=== PATIENT | female | born 2005 | race Caucasian/White ===

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

== ENCOUNTER 2024-06-15 14:28 | Emergency (ER) | payer MEDICAID ==
[~2024-06-15] VITALS: Ht 154.9 cm; Wt 72.7 kg
[2024-06-15 16:15] LABS: BILIRUBIN,URINE NEGATIVE (Neg); CLARITY,URINE CLOUDY (Clear); COLOR,URINE YELLOW (Yellow); GLUCOSE, URINE NEGATIVE (Neg); KETONES,URINE 15 mg/dl (Neg); LEUKOCYTE ESTERASE ,URINE SMALL (Neg); NITRITES, URINE NEGATIVE (Neg); OCCULT BLOOD,URINE TRACE-INTACT (Neg); PROTEIN,URINE 30 mg/dl (Neg)
[2024-06-15 16:16] LABS: URINE HCG NEGATIVE (NEG)
[2024-06-15 16:24] LABS: UA COLLECTION TYPE CLN CATCH MIDSTREAM
[2024-06-15 16:26] LABS: BACTERIA,URINE 1+ /HPF (Neg); SQUAMOUS EPITHELIAL CELL,UR MANY /LPF (FEW); WBC,URINE TNTC /HPF (0-4)
[2024-06-15 16:54] LABS: BASOPHILS % (AUTO) 0.3 % (0-1); EOSINOPHILS % (AUTO) 0.1 % (0-6); HEMOGLOBIN 12.8 g/dl (12.0-16.0); LYMPHOCYTES % (AUTO) 8.5 % (21-51); MEAN CORPUSCULAR HEMOGLOBIN 26.1 PG (27.0-31.0); MEAN CORPUSCULAR HGB CONC 32.7 g/dL (33.0-36.5); MEAN CORPUSCULAR VOLUME 79.7 FL (78-98); MEAN PLATELET VOLUME 9.1 FL (7.4-10.4); MONOCYTES # (AUTO) 0.7 X10'3 (0-0.9); MONOCYTES % (AUTO) 5.9 % (2-12); NEUTROPHILS # (AUTO) 10.5 X10'3 (1.8-7.7); NEUTROPHILS % (AUTO) 85.2 % (42-75); PLATELET COUNT 269 X10'3 (140-440); RED CELL DISTRIBUTION WIDTH 14.3 % (11.5-14.5); WHITE BLOOD COUNT 12.3 X10'3 (4.5-11.0)
[2024-06-15 17:22] LABS: ALANINE AMINOTRANSFERASE 12 U/L (12-78); ALBUMIN 3.9 G/DL (3.4-5.0); ALBUMIN/GLOBULIN RATIO 0.8 (1.1-1.5); ALKALINE PHOSPHATASE 90 IU/L (20-180); ANION GAP 10 (8-16); ASPARTATE AMINO TRANSFERASE 10 U/L (10-37); BILIRUBIN,TOTAL 0.4 MG/DL (0.1-1.0); BLOOD UREA NITROGEN 7 MG/DL (7-18); BUN/CREATININE RATIO 9.1 (10.0-20.0); CALCIUM 9.3 MG/DL (8.5-10.1); CHLORIDE 102 MMOL/L (99-107); CREATININE 0.77 MG/DL (0.40-0.90); GLUCOSE 94 MG/DL (70-104); POTASSIUM 3.5 MMOL/L (3.5-5.1); SODIUM 138 MMOL/L (135-145); TOTAL PROTEIN 8.5 G/DL (6.4-8.2); eCRCL 88 ML/MIN; eGFR > 90 ML/MIN
[2024-06-15 18:08] VITALS: BP 109/68; PULSE 70; TEMP 97.5; O2SAT 97
[2024-06-15 18:55] LABS: BILIRUBIN,URINE NEGATIVE (Neg); CLARITY,URINE SLIGHTLY CLOUDY (Clear); COLOR,URINE YELLOW (Yellow); GLUCOSE, URINE NEGATIVE (Neg); KETONES,URINE 15 mg/dl (Neg); LEUKOCYTE ESTERASE ,URINE SMALL (Neg); NITRITES, URINE NEGATIVE (Neg); OCCULT BLOOD,URINE TRACE-INTACT (Neg); PROTEIN,URINE NEGATIVE (Neg); UROBILINOGEN,URINE 0.2 E.U/dL (0.2-1.0)
[2024-06-15 18:56] LABS: UA COLLECTION TYPE NON-SPECIFIED
[2024-06-15 19:08] LABS: BACTERIA,URINE 1+ /HPF (Neg); SQUAMOUS EPITHELIAL CELL,UR FEW /LPF (FEW)
[2024-06-15 19:09] LABS: MUCUS STRANDS FEW /LPF (Neg)
[2024-06-15] MEDS ORDERED: CIPR-259 PO (19:22)
[2024-06-15] MEDS: ciprofloxacin 250mg tablet PO STA (19:33)
[2024-06-15 19:35] VITALS: RESP 18
== END 2024-06-15 19:36 | disposition home or self-care (01) ==
LOC: ER 14:29
DX: N10 Acute pyelonephritis (principal); Z87.442 Personal history of urinary calculi
CPT/HCPCS: 36415; 76770; 80053; 81001; 81025; 83605; 85025; 87088; 99284

== ENCOUNTER 2025-02-01 16:44 | Inpatient (IN) | payer MEDICAID ==
[~2025-02-01] VITALS: Ht 154.9 cm; Wt 66.8 kg
[2025-02-01 17:21] LABS: MEAN PLATELET VOLUME 8.8 FL (7.4-10.4); RED CELL DISTRIBUTION WIDTH 14.4 % (11.5-14.5)
[2025-02-01 17:38] LABS: CREATININE 0.95 MG/DL (0.40-0.90); TOTAL CARBON DIOXIDE 20.1 MMOL/L (24-32); eCRCL 71 ML/MIN; eGFR 75 ML/MIN
--- NOTE | 2025-02-01 19:12 | Physician Documentation ---
History of Present Illness Chief Complaint: Abdominal Pain w/vomiting Stated Complaint: PCOS Time Seen by MD: 18:57 OK to notify your PCP?: Yes Source: patient, family, RN/MD, RN notes reviewed, old records Mode of Arrival: POV Exam Limitations: no limitations HPI This 19-year-old female from the start is having problems communicating with the physician. Patient does not seem to want to participate in her health care. She is complaining that she has already explained her condition to other people in his not interested in providing more information. A male friend was able to provide information that she has been having abdominal pain and shows me a picture of polycystic ovary disease. Patient did say that she has had pain like this before. She states her pain is bilateral but does not provide any other additional information. From the nurse and triage note patient denies any fever. Patient has had pain on the left side right side prior medical record shows that she has had UTIs. No history of STDs. Patient denies taking any drugs. Patient appears well otherwise she states she is in pain but looks comfortable Medication Reconciliation Allergies: Coded Allergies: No Known Allergies (Unverified , 06/15/24) Past Medical History Past Medical History: No Pertinent History Past Surgical History: no surgical history Alcohol Use: None Drug Use: none Lives In: Home Review of Systems All Other Systems at this time: Reviewed and Negative ROS As stated above in the HPI, otherwise all systems are reviewed and negative. Physical Exam Vital Signs: RN Vital Signs have been reviewed: Yes, Temperature: 97.3, Heart Rate: 88, Respiratory Rate: 15, BP: 117/58, Pulse Oximetry: 100, Weight: 66.820 Oxygen Flow Rate: 0 Physical Exam General: The patient is well developed, well nourished, nontoxic appearing and is in no acute distress. Skin: [place], warm and dry with no rashes. HEENT: Head was normocephalic and atraumatic. Eyes - pupils equal, round, reactive to light and accommodation. Extraocular movements were intact. Conju nctivae were nonicteric. The mouth with moist mucous membranes. Neck: Supple and nontender. There was no jugular venous distention, Chest: Clear to auscultation bilaterally without wheezes, rales or rhonchi. No accessory muscle use. Heart: Rate regular and rhythmic. S1, S2. No murmurs. Abdomen: Soft, nontender and nondistended. Positive bowel sounds. No guarding or rebound. Extremities: No cyanosis, clubbing or edema. The patient moves all extremities. Neurologic: Motor sensory grossly intact Psychologic: The patient was oriented to person, place and time. The patient demonstrated appropriate judgement and insight. Progress Progress Note 2309: Message left with the surgeon Rigoberto at this time informing him of patients case. 2312: The case was discussed with the hospitalist resident at this time who was informed on the patient and kindly agreed to their admission. Results/Orders Reviewed/noted all lab results: Yes Results/Orders Orders - AXEL CASTREJON MD Ultrasound Pelvis W/Orwo Dplx (02/01/25 19:01) Completed Orders - AXEL CASTREJON MD Normal Saline 1000ml (0.9% Sodium Chlori (02/01/25 19:05) Vital Signs 02/01/25 16:47 Temp 97.3 Pulse 88 Resp 15 B/P (MAP) 117/58 Pulse Ox 100 O2 Flow Rate 0 Laboratory Tests Test 02/01/25 17:06 White Blood Count 14.8 H Red Blood Count 4.96 Hemoglobin 13.0 Hematocrit 39.3 Mean Corpuscular Volume 79.3 Mean Corpuscular Hemoglobin 26.2 L Mean Corpuscular Hemoglobin Concent 33.1 Red Cell Distribution Width 14.4 Platelet Count 248 Mean Platelet Volume 8.8 Neutrophils (%) (Auto) 85.0 H Lymphocytes (%) (Auto) 9.6 L Monocytes (%) (Auto) 4.6 Eosinophils (%) (Auto) 0.4 Basophils (%) (Auto) 0.4 Neutrophils # (Auto) 12.6 H Lymphocytes # (Auto) 1.4 Monocytes # (Auto) 0.7 Eosinophils # (Auto) 0.1 Basophils # (Auto) 0.1 CBC Comment Sodium Level 138 Potassium Level 3.3 L Chloride Level 101 Carbon Dioxide Level 20.1 L Anion Gap 17 H Blood Urea Nitrogen 13 Creatinine 0.95 H Estimated GFR/1.73 m2 75 BUN/Creatinine Ratio 13.7 Glucose Level 127 H Calcium Level 9.8 Total Bilirubin 0.5 Aspartate Amino Transf (AST/SGOT) 16 Alanine Aminotransferase (ALT/SGPT) 16 Alkaline Phosphatase 90 Total Protein 9.0 H Albumin 4.5 Globulin 4.5 H Albumin/Globulin Ratio 1.0 L Lipase 22 Chemistry Comments Re-Evaluation Re-Evaluation : Re-Evaluation: Improved Progress Patient was seen and examined. Patient is given reassurance. Per medical record patient has had prior elevations in white count. The patient's prior visit appears to be similar except she was diagnosed with pyelonephritis. Ultrasound was negative for vascular abnormality to the kidneys. Patient's vitals were reassuring. Family states that she seems to be a bit confused she is taking pain meds but denies any drugs or alcohol. Patient appears comfortable. Patient's laboratory work however did show a slight leukocytosis. WBC 14.8 with 85 PMNs. Chemistry did show slight metabolic acidosis with CO2 of 20.1 and potassium slightly low at 3.3. Patient's tox screen was positive for marijuana. Urinalysis hCG was negative as well as a normal urinalysis. However cat scan was then ordered which revealed revealed an early appendicitis. Antibiotics were then provided. I contacted the surgeon on-call who recommended a long prep with oral contrast. Patient's symptoms initially were thought to be possible UTI, ovarian cysts, endometriosis, torsion. Those workups were negative and with a positive appendicitis patient received fluid boluses Toradol and later Zosyn. Patient was then admitted to the hospitalist service for further workup and care. Continuous associate director of sales interpretation shows normal sinus rhythm heart rate 80s, no ectopy, normal, my interpretation. Pulse oximetry monitor interpretation shows normal oxygenation 99% room air, normal, my interpretation. EKG/XRAY/CT/US/VASC/MRI CT : Impression Exam: CT CT ABDOMEN PELVIS History: ABD PAIN Comparison Study: None TECHNIQUE: Multidetector CT of the abdomen was performed from lung bases to pubic symphysis. Imaging was performed without IV contrast. Axial, coronal and sagittal multiplanar reformats were obtained from the axial data set by the technologist. Radiation Dose Information: Dose-length product is 603 mGy*cm FINDINGS: Limited sections of the lung bases demonstrate no focal pulmonary mass. The liver, spleen, pancreas, and both adrenal glands demonstrate no acute findings. Minimal hepatomegaly to 17.2 cm. The gallbladder is unremarkable. The stomach is unremarkable. The small bowel loops are not dilated. Mild thickening and inflammation about the appendix where early stages of acute appendicitis is not excluded. No colonic obstruction. Bilateral kidneys are unremarkable. No hydronephrosis. The urinary bladder is partially distended. No significant lymphadenopathy. Air attenuation structure within the vaginal canal is likely tampon. No free air or free fluid. The aorta and IVC demonstrate no acute findings. Visualized osseous structures demonstrate no acute abnormality. IMPRESSION: 1. Mild thickening and inflammation about the appendix where early stages of acute appendicitis is not excluded. 2. Air attenuation structure within the vaginal canal is likely tampon. Electronically Signed by:BÁRBARA CARVALHO MD Date & Time: 02/01/252244 Dictated by: BÁRBARA CARVALHO MD Dictation date and time: 02/01/252244 Ultrasound : Impression INDICATION: ABD PAIN, pelvic pain possible ovarian cyst TECHNIQUE: Multiple real-time grayscale transabdominal sonographic images along with color and duplex Doppler of the uterus and ovaries were obtained. COMPARISON: None FINDINGS: The uterus measures 5.5 x 3.3 x 4.0 cm. The endometrial stripe measures 0.2 cm. Right ovary measures 4.2 x 2.5 x 3.4 cm with normal Doppler color flow. Right ovarian cyst measures 2.0 cm. Left ovary measures 3.2 x 1.9 x 2.4 cm with normal Doppler color flow IMPRESSION: Right ovarian cyst measures 2.0 cm. Electronically Signed by:BARRON LARA MD Date & Time: 02/01/252015 Dictated by: BARRON LARA MD Dictation date and time: 02/01/252015 Medical Decision Making Additional info obtained from: old records Differential Dx:Considerations: Include: Appendicitis, Bowel obstruction, Cholangitis, Cholelithasis, Constipation, Diverticular disease, Esophagitis, Gastritis/PUD, Gastroenteritis, GI hemorrhage, Hernia, Hepatitis, Inflammatory BD, Ischemic bowel, Ovarian cyst/torsion, PID, Urinary obstruction, Urinary tract infection, Urolithiasis, Other Departure Time of Disposition: 23:20 Disposition: 01 HOME / SELF CARE / HOMELESS Impression: Primary Impression: Appendicitis Qualified Codes: K35.30 - Acute appendicitis with localized peritonitis, without perforation or gangrene Condition: Stable Discharge Instructions: Dysmenorrhea, [id number] Additional Instructions: Patient is instructed to follow up with gynecology. Referrals: NO PRIMARY CARE PROVIDER (PCP) Education Educated: Patient, Family Educated regarding: diagnosis, treatment, prognosis, need for follow up Critical Care Note Total Time (mins): 30 Critical Care Note The very real possibility of a deterioration of this patient's condition required the highest level of my preparedness for sudden, emergent intervention. I provided critical care services, which included medication orders, frequent reevaluations of the patient's condition and response to treatment, ordering and reviewing test results, and discussing the case with various consultants. Excludes time spent performing separately billable procedures. The critical care time associated with the care of the patient was 30 minutes. Signature Scribe Signature: Scribed for Axel Castrejon MD by Kim Matthew . 02/01/25 21:38 (departure) Attestation: The note accurately reflects work and decisions made by me.Axel Castrejon MD 02/01/25 19:13 AXEL CASTREJON MD Feb 01, 2025 19:12 KIM ROLON Feb 01, 2025 21:38
[2025-02-01] MEDS: normal saline 1000ML IV soln IVB ONE ×2 (19:25→20:17)
--- NOTE | 2025-02-01 20:18 | RADIOLOGY REPORT ---
INDICATION: ABD PAIN, pelvic pain possible ovarian cyst TECHNIQUE: Multiple real-time grayscale transabdominal sonographic images along with color and duplex Doppler of the uterus and ovaries were obtained. COMPARISON: None FINDINGS: The uterus measures 5.5 x 3.3 x 4.0 cm. The endometrial stripe measures 0.2 cm. Right ovary measures 4.2 x 2.5 x 3.4 cm with normal Doppler color flow. Right ovarian cyst measures 2.0 cm. Left ovary measures 3.2 x 1.9 x 2.4 cm with normal Doppler color flow IMPRESSION: Right ovarian cyst measures 2.0 cm.
[2025-02-01 21:22] LABS: LEUKOCYTE ESTERASE ,URINE NEGATIVE (Neg); NITRITES, URINE NEGATIVE (Neg); OCCULT BLOOD,URINE NEGATIVE (Neg); URINE HCG NEGATIVE (NEG)
[2025-02-01 21:28] LABS: UA COLLECTION TYPE CLN CATCH MIDSTREAM
[2025-02-01 21:38] LABS: URINE AMPHETAMINE SCREEN NEGATIVE (Neg); URINE BARBITUATE SCREEN NEGATIVE (Neg); URINE BENZODIAZEPINES SCREEN NEGATIVE (Neg); URINE CANNABINOID SCREEN POSITIVE (Neg); URINE COCAINE SCREEN NEGATIVE (Neg); URINE METHADONE SCREEN NEGATIVE (Neg); URINE OPIATE SCREEN NEGATIVE (Neg); URINE PHENCYCLIDINE SCREEN NEGATIVE (Neg)
[2025-02-01] MEDS: ketorolac trometh 30MG/ML vial 30 MG/ML VIAL IV ONE (22:46)
--- NOTE | 2025-02-01 22:46 | RADIOLOGY REPORT ---
Exam: CT CT ABDOMEN PELVIS History: ABD PAIN Comparison Study: None TECHNIQUE: Multidetector CT of the abdomen was performed from lung bases to pubic symphysis. Imaging was performed without IV contrast. Axial, coronal and sagittal multiplanar reformats were obtained fr om the axial data set by the technologist. Radiation Dose Information: Dose-length product is 603 mGy*cm FINDINGS: Limited sections of the lung bases demonstrate no focal pulmonary mass. The liver, spleen, pancreas, and both adrenal glands demonstrate no acute findings. Minimal hepatomeg elisabeth to 17.2 cm. The gallbladder is unremarkable. The stomach is unremarkable. The small bowel loops are not dilated. Mild thickening and inflammation about the appendix where early stages of acute appendicitis is not e xcluded. No colonic obstruction. Bilateral kidneys are unremarkable. No hydronephrosis. The urinary bladder is partially distended. No significant lymphadenopathy. Air attenuation structure within the vaginal canal is likely tampon. No free air or free fluid. The aorta and IVC demonstrate no acute findings. Visualized osseous structures demonstrate no acute abnormality. IMPRESSION: 1. Mild thickening and inflammation about the appendix where early stages of acute appendicitis is no t excluded. 2. Air attenuation structure within the vaginal canal is likely tampon.
[2025-02-01] MEDS: piperacillin/tazo 3.375gm/50ml 50 ML IV ONE (23:22)
[2025-02-02] MEDS ORDERED: magnesium sulf-water 2g/50mL 50 ML IV PRN (00:20)
[2025-02-02] MEDS ORDERED: HYDROcodone/acetaminophen 5mg/325mg tablet PO PRN (00:20)
[2025-02-02] MEDS ORDERED: potassium Cl 20 mEq SR tablet PO PRN (00:20)
[2025-02-02] MEDS ORDERED: magnesium Cl slow-release 64mg tablet PO PRN (00:20)
[2025-02-02] MEDS ORDERED: ondansetron/PF 4mg/2ml inj IV PRN ×2 (00:20→12:55)
[2025-02-02] MEDS ORDERED: mag hydrox/Alum hydrox/simeth 30ml oral suspension PO PRN (00:20)
[2025-02-02] MEDS ORDERED: potassium Cl 40MEQ/1/2NS 520ml 520 ML IV PRN (00:20)
[2025-02-02] MEDS ORDERED: magnesium sulf-water 4G/100mL 100 ML IV PRN (00:20)
[2025-02-02] MEDS ORDERED: HYDROcodone/acetaminophen 10/325mg tab PO PRN (00:20)
[2025-02-02 00:30] VITALS: BP 118/55; PULSE 67; RESP 14; TEMP 98.7; O2SAT 100
[2025-02-02 00:45] VITALS: RESP 16
[2025-02-02] MEDS: normal saline 1000ml 1,000 ML IV SCH (01:05)
--- NOTE | 2025-02-02 01:10 | HISTORY AND PHYSICAL-Residence ---
History & Physical Providers to Resident Creating Document: MARYLOU NUR RES ~ History of Present Illness Reason for Admit\Complaint: Acute appendicitis History of Present Illness 19-year-old female with no significant past medical history presents to the ED with chief complaints of 10/10 abdominal pain since the past one day. Abdominal pain is mostly in the right upper and lower quadrants. Intensity 10/10. Associated with nausea, vomiting, cold sweats. Denies fever, chills, diarrhea, constipation, chest pain, dizziness, shortness of breath. She has had an episode of cold sweats and vomiting two months ago. She has been to [facility] ED the past, unsure about the workup that was done there. Drinks occasionally, smokes daily. No history of STDs. Denies recreational drug use. Boyfriend present at bedside. Discussed advanced care directives and she wishes to be a full code. Allergies: Coded Allergies: No Known Allergies (Unverified , 06/15/24) Home Medications Home Medications Active Past Medical History Past Medical History None Past Surgical History Surgical History Comment None Past Social History Alcohol Use: None Drug Use: None Lives In: Home ROS All Other Systems: Reviewed and Negative ROS Reviewed in full. All negative except for pertinent positive HPI. Exam Vitals: Vital Signs Date Time Temp Pulse Resp B/P (MAP) Pulse Ox O2 Delivery O2 Flow Rate FiO2 02/02/25 00:10 72 16 122/64 (83) 99 02/01/25 16:47 97.3 0 General: General: Awake and Alert, no acute distress. HEENT: Conjunctiva pink, Sclera clear, Mucus Membranes moist. Neck: Supple without masses and tenderness. Resp: Unlabored. Equal breath sounds bilaterally. Heart: Regular rhythm, normal S1 and S2, no rub, murmur or gallop. Abdomen: Right upper and lower quadrant pain and tenderness. McBurney's point tenderness present. Guarding present no rigidity. Normal bowel sounds x4. Extremities: Normal ROM, no swelling, nontender. No cyanosis,clubbing or edema. AIR TRAFFIC CONTROL SPECIALIST: No gross motor or sensory abnormalities. Skin: Warm and Dry. Diagnostic Data Last Recorded Lab Results: 02/02/25 1332 02/02/25 0045 Advance Care Planning Advanced Care plannin - 30 Minutes Additional Plan 19-year-old female with no significant past medical history presents to the ED with chief complaints of 10/10 abdominal pain since the past one day. Acute appendicitis Neutrophilic leukocytosis Right upper and lower abdominal pain, 10/10 in intensity WBCs 14.8, follow up with procalcitonin and lactic acid UA clear, UTox positive for cannabis CT abdomen pelvis: Mild thickening and inflammation about the appendix with early stages of acute appendicitis Dr. Castrejon contacted Dr. Turner, awaiting response Received 2 L and Zosyn fluid bolus in the ED Continue IV fluids NS at 100 mL/hour IV antibiotics Zosyn Follow up with lactic acid, blood cultures Consult surgeon in a.m. Hypokalemia Replacement per protocol Code Status: Full code DVT prophylaxis: SCDs, patient is ambulatory Analgesia/sedation: [place]/morphine Line/tube: PIV GI prophylaxis: None Nutrition: NPO Prognosis: Guarded Disposition: Continue medical management. Marylou Nur MD. IM Resident PGY-3 Addendum I personally reviewed the chart, labs and imaging and reviewed the patient with the team. I agree with the assessment and plan as documented by the resident. Patient was seen through remote audio-visual assessment through HIPAA compliance setup. Date of Service: Feb 02, 2025 Billing Provider: YEHUDA BARAHONA MD, ELIZABETH, DEEP Feb 02, 2025 01:10 YEHUDA BARAHONA MD Feb 03, 2025 04:06
[2025-02-02] MEDS: diatr meglu/diatrizoate 30ml oral sol.-(3 dose) bottle PO SCH (01:20)
[2025-02-02 06:00] VITALS: BP 110/61; PULSE 52; RESP 14; TEMP 98.3; O2SAT 100
[2025-02-02] MEDS: potassium Cl 20 mEq SR tablet PO PRN (07:50)
[2025-02-02 08:00] VITALS: RESP 16
[2025-02-02] MEDS: K and/or MAG REPLACEMENT MC SCH (08:00)
[2025-02-02] MEDS: piperacillin/tazo 3.375gm/50ml 50 ML IV SCH (09:04)
[2025-02-02 10:00] VITALS: BP 112/77; PULSE 60; RESP 18; TEMP 98; O2SAT 100
[2025-02-02] MEDS ORDERED: iohexol 300mg/ml 100ml inj. ONE (10:42)
--- NOTE | 2025-02-02 12:48 | RADIOLOGY REPORT ---
Exam: CT CT ABDOMEN PELVIS W/ IV ORAL CONTRAST History: ABD PAIN Comparison Study: CT CT ABDOMEN PELVIS on DOS: 02/01/25 Technique: Multidetector spiral CT of the abdomen and pelvis was performed from lung bases to pubic s ymphysis. Initial imaging was done without IV contrast, followed by post contrast images of the abdo men and pelvis. Intravenous contrast was administered during this examination. Portal venous imaging was obtained. Axial, coronal and sagittal multiplanar reformats were performed by the technologist o n a separate workstation. CONTRAST: Type of contrast: Omni 300 Contrast injected: 100 ml Radiation Dose : CT Dose: CTDI volume is 13 mGy. Dose-length product is 631 mGy*cm Findings: Lung Bases: No acute or significant lung base finding. Normal heart size. No pleural or pericardial effusion. Liver: Heterogeneous enhancement of the liver. No discrete liver mass identified. Gallbladder and biliary Tree: Unremarkable Spleen: Unremarkable Pancreas: The pancreas is normal in appearance without focal lesions or abnormal enhancement. Adrenal Glands: Unremarkable Kidneys: Kidneys demonstrate normal symmetric enhancement without focal lesions, calculi or hydroneph rosis. Bladder: Unremarkable Bowel: The stomach is grossly normal in appearance. Small bowel and colon are normal in caliber and d istribution. Normal appendix is visualized in the right lower quadrant without findings of appendici tis. Ascites: Free fluid in the pelvis is likely physiologic. Lymphadenopathy: Subcentimeter mesenteric lymph nodes. Abdominal wall and Mesentery: Unremarkable. Vasculature: The visualized abdominal aorta is normal in size and caliber. Abdominal and pelvic vess els demonstrate normal enhancement. Pelvic Organs: Unremarkable Musculoskeletal: No aggressive focal bony lesions, acute fractures or dislocation. IMPRESSION: 1. No acute abdominal or pelvic finding. Normal-appearing appendix. Heterogeneous enhancement of the liver could be due to phase of contrast. Consider further evaluation with MRI of the abdomen with co ntrast. Subcentimeter mesenteric lymph nodes are nonspecific. Radiation optimization: All CT scans at this facility use at least one of these dose optimization jada hniques: Automated exposure control mA and/or kV adjustment per patient size (includes targeted exams where dose is matched to clinical indication) or iterative reconstruction. HS:Y
[2025-02-02] MEDS: ringers solution, lacted 1,000 ML IV SCH (12:55)
[2025-02-02] MEDS ORDERED: fentaNYL/PF 50MCG/1 ML 2ML syringe IV PRN ×2 (12:55)
[2025-02-02] MEDS ORDERED: hydrALAZINE 20mg/ml inj. IV PRN (12:55)
[2025-02-02] MEDS ORDERED: morphine 4 MG/ML inj SYRINge IV PRN (12:55)
[2025-02-02] MEDS ORDERED: labetalol 20mg/4ml (5mg/ml) syringe IV PRN (12:55)
[2025-02-02 13:46] LABS: MEAN PLATELET VOLUME 8.7 FL (7.4-10.4); RED CELL DISTRIBUTION WIDTH 14.2 % (11.5-14.5)
--- NOTE | 2025-02-02 13:52 | PROGRESS NOTE ---
Progress Note ID Providers to CC ~ Progress Note Progress Note: pt seen-pain much improved/ct neg-wbc improving a/p 1 resolving abd pain/ok to resume diet and dc JOHNATHAN PORTILLO MD Feb 02, 2025 13:52
[2025-02-02] MEDS ORDERED: HYDR-3965 PO (15:57)
--- NOTE | 2025-02-02 17:21 | DISCHARGE SUMMARY-Residence ---
Discharge Summary Providers to CC Resident Creating Document: FARAZ ADORNO, RES ~ Discharge Summary Admission Diagnosis: ACUTE APPENDICITIS Hospital Course DATE OF ADMISSION: February 01, 2025 DATE OF DISCHARGE: February 02, 2025 Discharge Diagnosis\Comment: Abdominal pain with undetermined etiology, resolved Appendicitis ruled out Reactive leukocytosis, resolved Hypokalemia, resolved Operations\Procedures: None Consultants: Dr. Nieto Complications: None Condition on DC: Stable New Medications: Hydrocodone Bit/Acetaminophen 5/325 MG ([place] 5/325 MG) 5 Mg/325 Mg Tablet 1 TAB PO Q6H PRN for pain, #8 TAB Discharge Summary: Patient is a 19-year-old with no significant past medical history admitted for evaluation of severe right upper and lower quadrant abdominal pain. Initial CT scan without contrast raise concerns for acute appendicitis, prompting admission. However, a subsequent CT scan with IV contrast was unremarkable, effectively ruling out appendicitis. During her hospital stay, she was treated empirically with IV Zosyn and IV fluids prior to the final imaging results. Her abdominal pain gradually improved, and no definitive pathology was identified. The patient also had hypokalemia, corrected with IV hydration. Given her clinical improvement in the absence of a definitive surgical or medical diagnosis, she was discharged in stable condition, with recovery occurring sooner than expected. Physical exam Vital Signs Date Time Temp Pulse Resp B/P (MAP) Pulse Ox O2 Delivery O2 Flow Rate FiO2 02/02/25 10:00 98.0 60 18 112/77 (89) 100 Room Air 02/02/25 00:45 0.0 General: Awake and Alert, no acute distress. HEENT: Conjunctiva pink, Sclera clear, Mucus Membranes moist. Neck: Supple without masses and tenderness. Resp: Unlabored. Lungs clear to auscultation bilaterally. Heart: Regular Rate and rhythm, normal S1 and S2 without murmur, rub or gallop. Abdomen: Soft and non tender no organomegaly Extremities: No cyanosis,clubbing or edema. Skin: Warm and Dry. Imaging studies Abdomen/pelvis CT on February 02, 2025 Findings: Lung Bases: No acute or significant lung base finding. Normal heart size. No pleural or pericardial effusion. Liver: Heterogeneous enhancement of the liver. No discrete liver mass i dentified. Gallbladder and biliary Tree: Unremarkable Spleen: Unremarkable Pancreas: The pancreas is normal in appearance without focal lesions or abnormal enhancement. Adrenal Glands: Unremarkable Kidneys: Kidneys demonstrate normal symmetric enhancement without focal lesions, calculi or hydronephrosis. Bladder: Unremarkable Bowel: The stomach is grossly normal in appearance. Small bowel and colon are normal in caliber and distribution. Normal appendix is visualized in the right lower quadrant without findings of appendicitis. Ascites: Free fluid in the pelvis is likely physiologic. Lymphadenopathy: Subcentimeter mesenteric lymph nodes. Abdominal wall and Mesentery: Unremarkable. Vasculature: The visualized abdominal aorta is normal in size and caliber. Abdominal and pelvic vessels demonstrate normal enhancement. Pelvic Organs: Unremarkable Musculoskeletal: No aggressive focal bony lesions, acute fractures or dislocation. IMPRESSION: 1. No acute abdominal or pelvic finding. Normal-appearing appendix. Heterogeneous enhancement of the liver could be due to phase of contrast. Consider further evaluation with MRI of the abdomen with contrast. Subcentimeter mesenteric lymph nodes are nonspecific. Abdomen/pelvis CT on February 01, 2025 FINDINGS: Limited sections of the lung bases demonstrate no focal pulmonary mass. The liver, spleen, pancreas, and both adrenal glands demonstrate no acute findings. Minimal hepatomegaly to 17.2 cm. The gallbladder is unremarkable. The stomach is unremarkable. The small bowel loops are not dilated. Mild thickening and inflammation about the appendix where early stages of acute appendicitis is not excluded. No colonic obstruction. Bilateral kidneys are unremarkable. No hydronephrosis. The urinary bladder is partially distended. No significant lymphadenopathy. Air attenuation structure within the vaginal canal is likely tampon. No free air or free fluid. The aorta and IVC demonstrate no acute findings. Visualized osseous structures demonstrate no acute abnormality. IMPRESSION: 1. Mild thickening and inflammation about the appendix where early stages of acute appendicitis is not excluded. 2. Air attenuation structure within the vaginal canal is likely tampon. *Problems/Diagnosis: (1) Hypokalemia Total Time Spent on D/C: Up to 30 Minutes Date of Service: Feb 02, 2025 Billing Provider: DICKSON MCGARRY MD Common Visit Codes: 20933-UCG/OBS DISCH DAY >30min FARAZ ADORNO, RES Feb 02, 2025 17:17 DICKSON MCGARRY MD Feb 02, 2025 20:27
== END 2025-02-02 16:28 | disposition left against medical advice (07) | DRG 425 ==
LOC: ER 16:44 → ED HOLD 23:23 → EDBEDREQ 02-02 00:16 → SUR 3N 02-02 00:40
PROVIDERS: ADMIT Internal Medicine Sleep Medicine; ATTEND Internal Medicine
DX: E87.6 Hypokalemia (principal); D72.828 Other elevated white blood cell count; Z53.21 Procedure and treatment not carried out due to patient leaving prior to being seen by health care provider; R10.31 Right lower quadrant pain
CPT/HCPCS: 36415; 74176; 74177; 76856; 80053; 80305; 81003; 81025; 82948; 83605; 83690; 83735; 84132; 84145; 85025; 87040; 87081; 93976; 96361; 96365; 96375; 99291; A6258; G0378; J1885; J2543; J7030; Q9963; Q9967